=== PATIENT | male | born 1990 | race Caucasian/White ===

== ENCOUNTER 2025-04-26 06:06 | Day surgery (SDC) | payer MEDICAID, SELFPAY ==
--- NOTE | 2025-04-25 18:28 | ANES.PREOP_ITS ---
General Info Date of Service Date Performed: 04/26/25 Height: 5 ft 9.25 in Weight: 128.367 kg Body Mass Index (BMI): 41.5 Surgical Procedure: Operation Date: 04/26/25 07:40 Proposed Procedure Side Surgeon p Excision Scalp Cyst Laura Orourke MD Meds Allergies and Home Medications Allergies Allergy/AdvReac Type Severity Reaction Status Date / Time Rabbit Fur Allergy Intermediate Asthma Uncoded 04/26/25 06:19 exacerbation Home Medication ?Medication ?Instructions ?Recorded albuterol sulfate 90 mcg/actuation 2 puff inhalation Q 4H PRN ##1 03/07/25 aerosol inhaler triamcinolone acetonide 0.1 % 1 applic topical BID PRN rash #80 03/07/25 topical ointment grams Current Visit Medications: Current Medications Generic Name Dose Route Start Last Admin Trade Name Freq PRN Reason Stop Dose Admin Ringer's Solution 1,000 mls @ 80 mls/hr 04/26/25 06:00 IV 04/26/25 23:59 INFUSION BERONICA Cefazolin Sodium/Dextrose 2 gm in 50 mls @ 100 mls/hr 04/26/25 06:00 Ancef Duplex IVPB 04/26/25 23:59 PREOP BERONICA IV Miscellaneous Supplies 1 each 04/26/25 06:00 Iv Access IV 04/26/25 23:59 DIRECTED BERONICA Sodium Chloride 0 ml 04/26/25 06:00 Normal Saline Flush 10 Ml Syr IV 04/26/25 23:59 PRN PRN Sodium Chloride 0 ml 04/26/25 06:00 Normal Saline 10 Ml Vial IJ 04/26/25 23:59 DIRECTED PRN Sterile Water 0 ml 04/26/25 06:00 Water,Injection,Sterile 10 Ml Vial IJ 04/26/25 23:59 DIRECTED PRN PFSH Active Problems Active Problems: Problem Status Onset Code Dental plaque Acute K03.6 Well adult Acute Scalp cyst Acute L72.9 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 Acne Acute 06/08/05 L70.9 Status post orchiopexy Acute Z98.890 Learning disabilities Acute F81.9 Superficial perivascular dermatitis Acute 10/15/15 L30.8 Surgical History Surgical History ORCHIOPAXY (02/28/98) Tobacco Smoking/Tobacco Use Status: Never Passive smoking exposure: No Alcohol Alcohol Intake: current Alcohol intake frequency: 0-2 drinks per day Substance Use Substance use: Never Substance use type: does not use Vital Signs and Lab Results Vital Signs Most Recent Vital Signs in EMR: Temp Pulse Resp BP Pulse Ox 36.5 C 87 20 146/92 H 98 04/26/25 06:33 04/26/25 06:33 04/26/25 06:33 04/26/25 06:33 04/26/25 06:33 Anesthesia Assessment and Plan Anesthesia History Personal History: No History of Anesthesia Complications Family History: No Family History of Anesthesia Complications Exercise Tolerance Exercise Tolerance: Metabolic Equivalents>4 Cardiac & Pulmonary Exam Cardiac Exam: Normal S1/S2 Heart Sounds Pulmonary Exam: Clear Bilateral Breath Sounds Implantable Cardiac Device Does patient have a Pacemaker or an ICD?: No Airway Exam Known Difficult Airway: No Mallampati Class: 2 Mouth Opening: Normal (> 3cm) Thyromental Distance: Less than 3 cm Neck Range of Motion: Full ROM Neck Circumference: Normal Teeth Condition: Normal Dentition ASA Classification ASA Score: ASA 3 Emergency Case?: No NPO Status NPO Status: NPO Clears >2 hours, Solids >8 hours Anesthesia Plan Resuscitation Status: Full Code Anesthesia Technique: MAC Anesthesia Airway Planned: LMA Monitors Used: Standard Monitors Preoperative Comments:: 34 yo for scalp lesion removal. Sig PMHx: no major. Never smoker, Occ EtOH. Discussed MAC vs GA. Will attempt MAC, with high likelihood of GA/LMA
[2025-04-26] VITALS (18 sets, daily range): BP systolic 90–146; BP diastolic 56–93; PULSE 73–88; RESP 15–30; TEMP 36.1–36.6; O2SAT 91–98; BMI 41.5
[2025-04-26] MEDS: Lactated Ringers 1,000 ML 80 ML IV (06:59)
[2025-04-26] MEDS: ceFAZolin 2 GM/50 ML BAG IVPB (07:42)
[2025-04-26] MEDS: Bupivacaine 0.5% Pres-Free W/EPI 30 ML VIAL (08:10)
--- NOTE | 2025-04-26 08:15 | SKI_PTH ---
PATIENT: Juan Duran LOC: [facility] U#:[id number] AGE/SX: 34/M ROOM: RE04/26/[address]: Laura Orourke : 1990 BED: DIS: 04/26/2025 SPEC #: [id number] RECD: 04/26/25 12:15 STATUS: YOLA REQ #: [id number] SURINDER: 04/26/25 08:[address]: Laura Orourke DEPT: Surgical Specimen RECD BY: Domi Cuadra ENTERED: 04/26/25 12:16 SP TYPE: BAO CHEATHAM DR: Pancho Campbell MD Tissues: 1 - SKIN CYST/TAG/DEBRIDEMENT Procedures: GROSS AND MICRO LEVEL 3 Comments: [id number]
[2025-04-26] MEDS: Hydrogen Peroxide 3% 480 ML BTL (08:39)
--- NOTE | 2025-04-26 08:44 | W.PM.DSUDISC ---
Date of service: 04/26/25 Discharge Plan Disposition Patient Disposition: Home Condition: Good Discharge Details Reason For Visit: Scalp cysts Attending Provider: Laura Orourke Primary Care Provider: Pancho Campbell Recommendations for Follow Up Recommended tests to be ordered by follow up provider: Follow up pathology Home Meds and New Rx's Prescriptions: Continued albuterol sulfate 90 mcg/actuation HFA aerosol inhaler 2 puff Inhalation Q4H PRN Qty: 1 0RF triamcinolone acetonide 0.1 % ointment 1 applic Topical BID PRN (Reason: rash) Qty: 80 1RF Rx Instructions: appply thin layer to arms twice/day for 10 days Discharge Instructions Instructions: Surgical Wound (DC) Additional Instructions: Your procedure went well today. You have sutures that will be removed in clinic when you return. Please shower tomorrow and allow warm soapy water to run over your incisions. Do not pick or pull at your incisions. Pat the incisions dry. You may take tylenol and ibuprofen for pain control. Applying ice to your incisions can also help with pain control. If you have any concerning drainage or bleeding or have further questions please contact the general surgery office. Activity:: Activity as Tolerated Shower/Bathe:: 24 hours Diet:: As Tolerated Discharge Orders Discharge Orders: Discharge Order (Routine); Ordered 04/26/25 Ordered By: Laura Orourke
--- NOTE | 2025-04-26 08:59 | W.ANESPOSTOP ---
Postoperative Evaluation Date, Time and Location Date Performed: 04/26/25 Time Performed: 08:59 Patient Location: PACU Vital Signs Most Recent Imported Vital Signs: Most Recent Vital Signs Temp Pulse Resp BP Pulse Ox 36.5 C 88 30 H 115/56 L 93 04/26/25 08:53 04/26/25 08:46 04/26/25 08:50 04/26/25 08:45 04/26/25 08:46 Pain Score Most Recent Pain Score: Most Recent Pain Score Pain Level 0 04/26/25 08:53 Assessment Mental Status: Arousable with meaningful communication Airway and Respiratory Function: Patent airway with normal (patient baseline) respiratory exam Cardiovascular Function: Hemodynamically Stable Hydration Status: Adequately Hydrated Nausea & Vomiting: No Nausea or Vomiting Pain: Pain is tolerable per patient Peripheral Nerve Block: Patient did not receive a nerve block
[2025-04-26] MEDS: Ketorolac 15 MG/ML VIAL IVP (09:03)
--- NOTE | 2025-04-26 14:45 | ROE_ITS ---
Operative Note Operative Note PRE-OP DIAGNOSIS: Scalp cysts POST-OP DIAGNOSIS: same PROCEDURE: Excision of multiple scalp cysts. SURGEON: Laura Orourke DETAIL SUPERVISOR: Raven Jackson ANESTHESIA TYPE: General LMA/ETT Refer to Anesthesia Record ESTIMATED BLOOD LOSS: 5 PATHOLOGY: other (Multiple scalp cysts ) Indications: Patient is a 34-year-old male who presents with multiple scalp cysts. He was evaluated in clinic and the cyst were noted to be mobile and likely pilar scalp cyst. Excision of the cyst was discussed with him as well as the risks and benefits. Consent was obtained prior to the procedure. Findings: Excision of three scalp cysts in their entirety performed. Hemostasis acheived and incisions closed with interrupted 2-0 Prolene suture. Procedure Description: After induction of anesthesia the patient was then prepped and draped in sterile fashion. ?Prior to incision, an additional timeout was performed, which again confirmed the patient's name, date of , and the procedure to be performed, including laterality, and antibiotics. The procedure was initiated by first marking the planned incisions over the 3 cystic lesions of the scalp. Local anesthesia was then injected along the planned incisions. On the left parietal scalp a 1.5 cm incision was made and using a combination of electrocautery and blunt dissection the cyst in this area was excised in its entirety. Hemostasis was achieved. The incision was irrigated and this incision was closed with 3 interrupted 2-0 Prolene sutures. A 1.5cm incision was then made over the cystic lesion of the right parietal scalp. The scalp was then removed in its entirety with a combination of blunt dissection and electrocautery. Hemostasis was achieved. The incision was irrigated and this incision was then closed with 3 interrupted 2-0 Prolene sutures. Finally attention was turned to the largest of the cyst at the vertex of the scalp. A 2.5 cm incision was made sharply with a scalpel over the cyst at the vertex of the scalp. Using a combination of blunt dissection and electrocautery the cyst was also removed in its entirety. Hemostasis was achieved. The incision was irrigated and closed with interrupted 2-0 Prolene suture. The excised cyst were sent to pathology for further evaluation. At this point, the patient was awoken, extubated and transported to the recovery room in stable condition. ?Sponge and instrument counts were correct. Date of Procedure: 04/26/25
== END 2025-04-26 10:07 | disposition home or self-care (01) ==
PROVIDERS: PCP Family Medicine; Visit Provider Student in an Organized Health Care Education/Training Program
PROC: (CPT 11423; principal; 2025-04-26 07:30)
DX: L72.9 Follicular cyst of the skin and subcutaneous tissue, unspecified (principal)
CPT/HCPCS: 11423; 11422 ×2; 88304; J0131; J0690; J1100; J1885; J2250; J2405; J2704